=== PATIENT | male | born 1935 | race Caucasian/White ===

== ENCOUNTER 2018-02-24 10:41 | Observation (INO) | payer OTHER ==
[2018-02-24 11:19] LABS: Absolute Lymphocytes (CBC) 3.7 K/uL (0.7-4.9); Absolute Monocytes 2.6 K/uL (0.1-1.3); Absolute Neutrophil 22.5 K/uL (1.8-8.0); Basophils % 0.3 % (0-1.3); Eosinophils % 34.7 % (0-4.4); Hematocrit 48.1 % (39.6-49.0); Lymphocytes % 8.3 % (15.3-44.8); MCH 29.2 pg (27.0-35.0); MCV 88.5 fL (80-100); MPV 8.9 fL (7.6-11.3); Monocytes % 5.8 % (3.3-12.3); RBC Red Blood Cell Count 5.43 M/uL (4.33-5.43)
[2018-02-24 11:37] LABS: Albumin 3.1 g/dL (3.4-5.0); Bilirubin Direct 0.1 mg/dL (0-0.2); Bilirubin Total 0.4 mg/dL (0.2-1.0); Potassium 4.4 mmol/L (3.5-5.1); Protein, Total 6.3 g/dL (6.4-8.2)
[2018-02-24] MEDS ORDERED: NA CHLORIDE 0.9% 1,000 ML ONE (11:52)
--- NOTE | 2018-02-24 12:57 | RAD REPORT ---
EXAM DESCRIPTION: CT - Abdomen Pelvis Wo Contrast - 02/24/2018 12:47 pm CLINICAL HISTORY: Abdominal pain. diarrhea;Abd pain COMPARISON: No comparisons TECHNIQUE: CT imaging of the abdomen and pelvis was performed without contrast. Solid organ and vasc ular assessment is limited due to lack of IV contrast. All CT scans are performed using dose optimization technique as appropriate and may include automated exposure control or mA/KV adjustment according to patient size. FINDINGS: Subpleural nodule in the right lung base is present measuring 4 mm. This most likely repre sents an intrapulmonary lymph node. A couple of additional tiny areas of nodularity air seen in the r ight lung base.Small hiatal hernia is present. The liver, spleen, pancreas, right adrenal gland and kidneys are within normal limits for a limited n on-contrast examination.12 mm low-density nodule left adrenal gland is likely an adenoma. No bowel obstruction, free air, free fluid or abscess. Very prominent sigmoid diverticulosis coli pat tern is present without evidence of diverticulitis. The appendix is normal. The osseous structures are within normal limits.Small fat containing umbilical hernias. IMPRESSION: Prominent sigmoid diverticulosis coli without diverticulitis. A limited non-contrast examination was performed as detailed.
--- NOTE | 2018-02-24 13:13 | ER ---
Nurse's Notes [facility] Name: Natanael Pathak Age: 82 yrs Sex: Male : 1935 Arrival Date: 02/24/2018 Time: 10:46 Bed 6 Private MD: Diagnosis: Dehydration;Leukocytosis;Acute kidney failure Presentation: 02/24 10:47 Presenting complaint: EMS states: He went to the [facility] for N/V/D since Wednesday, the [facility] jl7 called d/t systolic BP of 60s, he's been 110 systolic for us since arrival. Transition of care: patient was received from another setting of care (ambulatory primary care physician practice), [place]. Onset of symptoms was February 19, 2018. Risk Assessment: Do you want to hurt yourself or someone else? Patient reports no desire to harm self or others. Initial Sepsis Screen: Does the patient meet any 2 criteria? No. Patient's initial sepsis screen is negative. Does the patient have a suspected source of infection? No. Patient's initial sepsis screen is negative. Care prior to arrival: None. 10:47 Method Of Arrival: EMS: [facility] jl7 10:47 Acuity: MONICA 3 jl7 Triage Assessment: 10:53 General: Appears in no apparent distress. uncomfortable, Behavior is calm, cooperative, jl7 appropriate for age. Pain: Denies pain. EENT: No signs and/or symptoms were reported regarding the EENT system. Neuro: Level of Consciousness is awake, alert, obeys commands, Oriented to person, place, time. Cardiovascular: Patient's skin is warm and dry. Respiratory: Airway is patent Respiratory effort is even, unlabored, Respiratory pattern is regular, symmetrical. GI: Reports diarrhea, nausea, vomiting, since 02/19/18. : No signs and/or symptoms were reported regarding the genitourinary system. Derm: Skin is pink, warm \T\ dry. Musculoskeletal: No signs and/or symptoms reported regarding the musculoskeletal system. Historical: - Allergies: 10:53 No Known Allergies; jl7 - PMHx: 10:53 Hypertension; Hyperlipidemia; leukocytosis; neuropathy; Diabetes - IDDM; jl7 - PSHx: 10:53 Tonsillectomy; jl7 - Immunization history:: Adult Immunizations up to date. - Social history:: Smoking status: Patient/guardian denies using tobacco. - Ebola Screening: : No symptoms or risks identified at this time. - Family history:: not pertinent. - Hospitalizations: : No recent hospitalization is reported. Screenin:55 Abuse screen: Denies threats or abuse. Denies injuries from another. Nutritional jl7 screening: No deficits noted. Tuberculosis screening: No symptoms or risk factors identified. Fall Risk IV access (20 points). Assessment: 10:57 General: See triage assessment. jl7 12:00 Reassessment: No changes from previously documented assessment. Patient and/or family jl7 updated on plan of care and expected duration. Pain level reassessed. Patient is alert, oriented x 3, equal unlabored respirations, skin warm/dry/pink. 13:09 Reassessment: Dr. Painter at bedside discussing plan of care. jl7 14:00 Reassessment: No changes from previously documented assessment. Patient and/or family jl7 updated on plan of care and expected duration. Pain level reassessed. Patient is alert, oriented x 3, equal unlabored respirations, skin warm/dry/pink. 15:04 Reassessment: Patient appears in no apparent distress at this time. Patient and/or jl7 family updated on plan of care and expected duration. Pain level reassessed. Patient is alert, oriented x 3, equal unlabored respirations, skin warm/dry/pink. Vital Signs: 10:53 BP 166 / 69; Pulse 95; Resp 16 S; Temp 97.7(O); Pulse Ox 97% on R/A; Weight 94.35 kg jl7 (R); Height 6 ft. 2 in. (187.96 cm) (R); Pain 0/10; 11:42 BP 111 / 94; Pulse 95; Resp 17; Pulse Ox 99% on R/A; jb1 13:09 BP 110 / 61; Pulse 95; Resp 17 S; Pulse Ox 98% on R/A; jl7 14:30 BP 101 / 58; Pulse 89; Resp 16 S; Pulse Ox 98% on R/A; jl7 15:04 BP 101 / 63; Pulse 89; Resp 18 S; Pulse Ox 97% on R/A; jl7 10:53 Body Mass Index 26.71 (94.35 kg, 187.96 cm) 7 ED Course: 10:46 Patient arrived in ED. rn 10:46 Dakota Painter MD is Attending Physician. rn 10:50 First set of blood cultures drawn by id. jb1 10:51 Triage completed. jl7 10:53 Arm band placed on right wrist. jl7 10:55 Patient has correct armband on for positive identification. Placed in gown. Bed in low jl7 position. Call light in reach. Side rails up X 1. boat engines installer on. Pulse ox on. NIBP on. Warm blanket given. 10:56 Joelle Hunter RN is Primary Nurse. jl7 11:05 Second set of blood cultures drawn by me. jb1 11:12 Initial lab(s) drawn, by id, sent to lab. Inserted saline lock: 20 gauge in left jb1 antecubital area, using aseptic technique. Blood collected. 11:54 EKG done, by ct technician. reviewed by Dakota Painter MD. at1 12:46 CT completed. Patient tolerated procedure well. Patient moved to CT via wheelchair. Patient moved back from CT. 12:47 Abdomen In Process Unspecified. EDMS 13:12 Kyle Donald MD is Hospitalizing Provider. rn 15:38 No provider procedures requiring assistance completed. Patient admitted, IV remains in jl7 place. intact, No redness/swelling at site. Administered Medications: 11:53 Drug: NS 0.9% 500 ml Route: IV; Rate: bolus; Site: left antecubital; jl7 13:00 Follow up: IV Status: Completed infusion jl7 Outcome: 13:12 Decision to Hospitalize by Provider. rn 15:37 Admitted to Tele accompanied by tech, via wheelchair, room 204, with chart, Report jl7 called to RAMIREZ Watts 15:37 Condition: stable 15:37 Discharge instructions given to patient, Instructed on the need for admit, Demonstrated understanding of instructions. 15:38 Patient left the ED. jl7 Signatures: Dispatcher [employer] EDMS Yuri Michelle jb1 Anna Del Real Roman, MD MD rn Gonzales, Amanda, fitness floor attendant EKG Tat1 Joelle Hunter RN RN jl7 Corrections: (The following items were deleted from the chart) 10:47 10:46 Joelle Hunter RN is Primary Nurse. jl7 jl7
--- NOTE | 2018-02-24 13:13 | EDPHYS ---
Physician Documentation [facility] Name: Natanael Pathak Age: 82 yrs Sex: Male : 1935 Arrival Date: 02/24/2018 Time: 10:46 Bed 6 Private MD: ED Physician Dakota Painter HPI: 02/24 11:47 This 82 yrs old Male presents to ER via EMS with complaints of rn Nausea/Vomiting/Diarrhea. 11:47 The patient presents to the emergency department with nausea, vomiting, diarrhea. rn Onset: The symptoms/episode began/occurred 2 day(s) ago. Possible causes: unknown. The symptoms are aggravated by nothing. The symptoms are alleviated by nothing. Severity of symptoms: At their worst the symptoms were moderate in the emergency department the symptoms are unchanged. The patient has not experienced similar symptoms in the past. Reports nausea/vomiting/diarrhea for 2 days, + mild abd cramping, + lightheaded and generalized weakness, seen at [facility] today, noted to be hypotensive, with BP in 60s, given 20cc of fluid PO challenge and called 911. . Historical: - Allergies: 10:53 No Known Allergies; jl7 - PMHx: 10:53 Hypertension; Hyperlipidemia; leukocytosis; neuropathy; Diabetes - IDDM; jl7 - PSHx: 10:53 Tonsillectomy; jl7 - Immunization history:: Adult Immunizations up to date. - Social history:: Smoking status: Patient/guardian denies using tobacco. - Ebola Screening: : No symptoms or risks identified at this time. - Family history:: not pertinent. - Hospitalizations: : No recent hospitalization is reported. ROS: 11:47 Constitutional: + fever and chills Eyes: Negative for injury, pain, redness, and rn clinical quality, Neck: Negative for injury, pain, and swelling, Cardiovascular: Negative for chest pain, palpitations, and edema, Respiratory: Negative for shortness of breath, cough, wheezing, and pleuritic chest pain, Abdomen/GI: + nausea/vomiting/diarrhea/and pain MS/Extremity: Negative for injury and deformity, Skin: Negative for injury, rash, and discoloration, Neuro: Negative for headache, numbness, tingling, and seizure. Exam: 11:47 Constitutional: This is a well developed, well nourished patient who is awake, alert, rn and in no acute distress. Head/Face: Normocephalic, atraumatic. Eyes: Pupils equal round and reactive to light, extra-ocular motions intact. Lids and lashes normal. Conjunctiva and sclera are non-icteric and not injected. Cornea within normal limits. Periorbital areas with no swelling, redness, or edema. ENT: dry MM Cardiovascular: Regular rate and rhythm with a normal S1 and S2. No gallops, murmurs, or rubs. Normal PMI, no JVD. No pulse deficits. Respiratory: Lungs have equal breath sounds bilaterally, clear to auscultation and percussion. No rales, rhonchi or wheezes noted. No increased work of breathing, no retractions or nasal flaring. Abdomen/GI: soft, non-tender MS/ Extremity: Pulses equal, no cyanosis. Neurovascular intact. Full, normal range of motion. Equal circumference. Neuro: Awake and alert, GCS 15, oriented to person, place, time, and situation. Cranial nerves II-XII grossly intact. Motor strength 5/5 in all extremities. Sensory grossly intact. Vital Signs: 10:53 BP 166 / 69; Pulse 95; Resp 16 S; Temp 97.7(O); Pulse Ox 97% on R/A; Weight 94.35 kg jl7 (R); Height 6 ft. 2 in. (187.96 cm) (R); Pain 0/10; 11:42 BP 111 / 94; Pulse 95; Resp 17; Pulse Ox 99% on R/A; jb1 13:09 BP 110 / 61; Pulse 95; Resp 17 S; Pulse Ox 98% on R/A; jl7 14:30 BP 101 / 58; Pulse 89; Resp 16 S; Pulse Ox 98% on R/A; jl7 15:04 BP 101 / 63; Pulse 89; Resp 18 S; Pulse Ox 97% on R/A; jl7 10:53 Body Mass Index 26.71 (94.35 kg, 187.96 cm) jl7 MDM: 10:46 Patient medically screened. rn 13:11 Differential diagnosis: Nonspecific abd pain, gastritis, pancreatitis, viral rn gastroenteritis, gastroenteritis. Differential diagnosis: gastritis, cholecystitis. Data reviewed: vital signs, nurses notes. Counseling: I had a detailed discussion with the patient and/or guardian regarding: the historical points, exam findings, and any diagnostic results supporting the discharge/admit diagnosis, lab results, radiology results, the need for further work-up and treatment in the hospital. Admission orders: after a detailed discussion of the patient's condition and case, the admit orders are written by me. ED course: Pt will be admitted for acute renal failure, dehydration, viral gastroenteritis, and unclear etiology of leukocytosis. . 02/24 10:46 Order name: Basic Metabolic Panel; Complete Time: 11:43 rn 02/24 10:46 Order name: CBC with Diff rn 02/24 10:46 Order name: Creatinine for Radiology; Complete Time: 11:43 rn 02/24 10:46 Order name: Hepatic Function; Complete Time: 11:43 rn 02/24 10:46 Order name: Lipase; Complete Time: 11:43 rn 02/24 11:05 Order name: Blood Culture Adult (2) aa 02/24 10:46 Order name: IV Saline Lock; Complete Time: 11:12 rn 02/24 10:46 Order name: Labs collected and sent; Complete Time: 11:12 rn 02/24 11:05 Order name: Lactate; Complete Time: 11:43 aa5 02/24 11:22 Order name: Manual Differential EDDC 02/24 11:53 Order name: EKG; Complete Time: 11:53 jl7 02/24 12:30 Order name: Abdomen ; Complete Time: 13:06 EDDC 02/24 11:53 Order name: EKG - Nurse/Tech; Complete Time: 13:43 jl7 Administered Medications: 11:53 Drug: NS 0.9% 500 ml Route: IV; Rate: bolus; Site: left antecubital; jl7 13:00 Follow up: IV Status: Completed infusion jl7 Disposition: 02/24/18 13:12 Hospitalization ordered by Kyle Donald for Inpatient Admission. Preliminary diagnosis are Dehydration, Leukocytosis, Acute kidney failure. - Bed requested for Telemetry/MedSurg (Inpatient). - Status is Inpatient Admission. jl7 - Condition is Stable. - Problem is new. - Symptoms have improved. UTI on Admission? No Signatures: Dispatcher [employer] EDDC Dakota Painter MD MD rn Leal, Jahala, RN RN jl7 Tete Rae RN RN df Corrections: (The following items were deleted from the chart) 12:30 10:47 Abdomen Pelvis W Con+CT.RAD.BRZ ordered. EDMS EDMS 14:51 13:12 Hospitalization Ordered by Kyle Donald MD for Inpatient Admission. Preliminary df diagnosis is Dehydration; Leukocytosis; Acute kidney failure. Bed requested for Telemetry/MedSurg (Inpatient). Status is Inpatient Admission. Condition is Stable. Problem is new. Symptoms have improved. UTI on Admission? No. rn 15:38 14:51 02/24/2018 13:12 Hospitalization Ordered by Kyle Donald MD for Inpatient jl7 Admission. Preliminary diagnosis is Dehydration; Leukocytosis; Acute kidney failure. Bed requested for Telemetry/MedSurg (Inpatient). Status is Inpatient Admission. Condition is Stable. Problem is new. Symptoms have improved. UTI on Admission? No. df
[2018-02-24 13:27] LABS: Blood Morphology Comment NOT SEEN (NOT SEEN); Platelet Estimate ADEQ
[2018-02-24] MEDS ORDERED: ONDANSETRON 4 MG/2 ML VIAL IV PRN (13:34)
[2018-02-24] MEDS ORDERED: ACETAMINOPHEN 500 MG TAB PO PRN (13:34)
[2018-02-24] MEDS: NA CHLORIDE 0.9% 1,000 ML IV SCH (16:29)
[2018-02-24 20:11] VITALS: BMI 26.6
[2018-02-24] MEDS: ATORVASTATIN 20 MG TAB PO SCH (20:23)
[2018-02-24] MEDS: ENOXAPARIN 30 MG/0.3 ML SQ SCH (20:24)
[2018-02-24] MEDS ORDERED: HOME MED 1 EA UNK (Simvastatin [Simvastatin] 1 TAB) PO SCH (21:00)
--- NOTE | 2018-02-24 22:08 | EKG ---
Test Date: 2018-02-24 Test Time: 11:20:35 Stenocaptioner: RA MEASUREMENT RESULTS: Intervals: Rate: 96 NV: 168 QRSD: 68 QT: 364 QTc: 459 [place]: P: 15 NV: 168 QRS: 62 T: 47 INTERPRETIVE STATEMENTS: Sinus rhythm with sinus arrhythmia with occasional premature ventricular complexes Anterior infarct, age undetermined Abnormal ECG No previous ECG available for comparison Electronically Signed On 02-24-18 22:08:15 CDT by Rahul Castillo
[2018-02-25] MEDS: NA CHLORIDE 0.9% 1,000 ML IV SCH ×3 (00:49→20:40)
--- NOTE | 2018-02-25 04:18 | HP ---
Date of Admission: 02/24/2018 Code Status: Full. Primary Care Physician: At the [facility]. Chief Complaint: Abdominal pain, nausea, vomiting, diarrhea, dizziness. History Of Present Illness: The patient is an 82-year-old male with past medical history of diabetes , hypertension, hyperlipidemia, undifferentiated leukocytosis, neuropathy who was in his usual state of health until 5 days prior to admission when the patient had sudden onset of abdominal pain that wa s crampy, intermittent, moderate in severity. The patient states associated symptoms included diarrh ea, which was loose watery. The patient did use some Imodium and Pepto-Bismol. He denied any fevers or chills. The patient came to the [place] for further evaluation, was found to be very hypotensive, and was sent to the ER for further evaluation. The patient denies any unusual foods, travel outside the country. No blood in the stool. Upon arrival, the patient's blood pressure was initially in the 80 s systolic. He was given 0.5 L bolus and improved his blood pressure to 1 teens. Workup revealed a white count of 44,000. The patient is aware of the elevated white blood cell count. There are no pr evious visits to compare. The patient denies any bone marrow biopsy or further workup to elucidate t he cause of his leukocytosis. His creatinine, however, was elevated at 2.7, baseline is unknown. Th e patient was then referred for admission. When seen in the ER, he was awake, alert, oriented x3. S ome mild distress. Past Medical History: Hypertension; hyperlipidemia; neuropathy; diabetes type 2, insulin requiring. Surgical History: Tonsillectomy at the age of 4. Allergies: NO KNOWN DRUG ALLERGIES. Medications: List reviewed. Social History: The patient denies any tobacco use. Rare alcohol use. No illicit drug use. The pa beto is independent and works out at the gym Wednesday through Wednesday, goes for walks on the weekends, independent in his activities of daily living. Family History: His grandfather had asthma and leaky heart valve. Review of Systems: An 11-point system reviewed, negative except as per HPI. Physical Examination: Vital Signs: Temperature 97.7, heart rate 95, blood pressure 110/61, respirations 16, O2 97% on room air. General: Awake, alert, oriented x3. Some mild distress. Elderly male, somewhat ill-appearing. HEENT: Normocephalic, atraumatic. PERRLA. EOMI. Dry mucous membranes. Oropharynx is clear. Conj unctivae anicteric. Neck: Supple. No JVD. Trachea midline. CV: S1, S2. Regular rate and rhythm. Peripheral pulses present. No murmurs. Respiratory: Moving air well bilaterally. No wheezing or stridor. No use of accessory muscles. Gastrointestinal: Abdomen is soft. Mild tenderness to palpation. No rebound or guarding. Bowel so unds are positive. Extremities: No clubbing, cyanosis, or edema. No calf tenderness. Neuro: Cranial nerves 2-12 intact grossly. No focal neurological deficit. Speech is normal. Stren gth is 5/5 in bilateral upper and lower extremities. Sensation decreased to light touch. Skin: No rashes. Normal skin turgor. Psych: Mood is okay. Affect is full. Insight and judgment are good. Laboratory Data: WBC 44.2, H and H 15.9, 48.1, platelets 339, neutrophils 50%, lymphocytes 8.3%, eos inophils 34%. Sodium 140, potassium 4.4, chloride 111, CO2 17, BUN 35, creatinine 2.7, glucose 212, lactate 1.8, calcium 7.2, AST 8, ALT 18, albumin 3.1, lipase 80, total bilirubin 0.4. CT scan of the abdomen and pelvis without contrast shows prominent sigmoid diverticulosis coli without diverticulit is, 12-mm low-density nodule, left adrenal gland, likely adenoma. Subpleural nodule in the right kari g base present measuring 4 mm, likely intrapulmonary lymph node. Assessment And Plan: An 82-year-old male with: 1.Gastroenteritis, likely viral versus bacterial. CT scan did not show any colitis. We will contin ue with supportive treatment, IV fluids, rehydration, and advance diet as tolerated. We will obtain stool sample, fecal leukocytes, and rule out Clostridium difficile. 2.Leukocytosis with eosinophilia, unclear etiology. We will obtain peripheral blood smear to rule o ut leukemia. The patient states that this was present previously, however, has not been worked up. No bone marrow biopsy done in the past. 3.Acute kidney injury versus [id number]-tn-[id number] kidney injury. The patient does not report any chroni c kidney disease, however, does have longstanding diabetes and hypertension. We will continue to mon itor creatinine. Avoid NSAIDs and nephrotoxins. Continue with IV fluid hydration, likely prerenal a zotemia from dehydration. 4.Hypotension. The patient resuscitated with IV fluids and blood pressure is improved. We will con tinue to monitor. Hold blood pressure medications at this time. 5.Mixed hyperlipidemia. The patient will resume home medications as appropriate. 6.Diabetes mellitus type 2, insulin requiring with hyperglycemia. We will start on sliding scale in sulin and resume home dose. Continue Accu-Cheks. 7.Gastrointestinal and deep venous thrombosis prophylaxis addressed with PPI and Lovenox. Plan: Admit the patient to Med-Surg, place as observation. We will follow up on peripheral blood sm ear and likely be discharging the patient home once the patient has clinical improvement in his kidne y function and resolution of his abdominal symptoms. ANA Voice ID: [id number]
[2018-02-25] MEDS: INSULIN GLARGINE 100 UNITS/ML SQ SCH (05:02)
[2018-02-25 06:21] LABS: Albumin 2.6 g/dL (3.4-5.0); Bilirubin Total 0.3 mg/dL (0.2-1.0); Potassium 4.1 mmol/L (3.5-5.1); Protein, Total 5.1 g/dL (6.4-8.2)
[2018-02-25 06:28] LABS: Absolute Lymphocytes (CBC) 4.9 K/uL (0.7-4.9); Absolute Monocytes 1.7 K/uL (0.1-1.3); Absolute Neutrophil 14.5 K/uL (1.8-8.0); Basophils % 0.4 % (0-1.3); Eosinophils % 42.1 % (0-4.4); Hematocrit 39.1 % (39.6-49.0); Lymphocytes % 13.4 % (15.3-44.8); MCH 29.8 pg (27.0-35.0); MCV 86.4 fL (80-100); MPV 9.2 fL (7.6-11.3); Monocytes % 4.7 % (3.3-12.3); RBC Red Blood Cell Count 4.52 M/uL (4.33-5.43)
[2018-02-25] MEDS ORDERED: GLUCAGON 1 MG/VIAL IM PRN (07:30)
[2018-02-25] MEDS: INSULIN -REGULAR HUMAN 50 UNIT/0.5 ML ML SQ SCH ×4 (07:30→20:37)
[2018-02-25] MEDS ORDERED: D50W 25 GM/50 ML SYRINGE IV PRN (07:30)
[2018-02-25 08:30] VITALS: O2SAT 98
[2018-02-25] MEDS: ENOXAPARIN 30 MG/0.3 ML SQ SCH (08:34)
[2018-02-25] MEDS: ASPIRIN 81 MG CHEWABLE TABLET PO SCH (08:34)
[2018-02-25] MEDS ORDERED: CALCIUM GLUC 10% INJ 4.65 MEQ in NA CHLORIDE 0.9% 100 ML IV ONE ×2 (09:13→18:00)
[2018-02-25] MEDS: VANCOMYCIN ORAL SOLN 250 MG/5 ML OSYR PO SCH ×3 (12:03→23:09)
--- NOTE | 2018-02-25 16:27 | P.CNS ---
Date of Consult: 02/25/18 Reason for Consult: abnormal RFT and abnormal labs Allergies No Known Allergies Allergy (Verified 02/24/18 16:30) Home Medications: Aspirin [Donell Chewable Aspirin] 1 tab PO DAILY 02/24/18 Glipizide [Glucotrol] 1 tab PO TID 02/24/18 Insulin Glargine,Hum.rec.anlog [Lantus] 50 units SQ [id number] 02/24/18 Lisinopril [Zestril] 1 tab PO DAILY 02/24/18 Metoprolol Tartrate [Lopressor*] 1 tab PO DAILY 02/24/18 Potassium Oral Tab [Klor-Con 10 mEq Tab*] 1 tab PO DAILY 02/24/18 Simvastatin 1 tab PO BEDTIME 02/24/18 hydroCHLOROthiazide [Hydrochlorothiazide] 1 tab PO DAILY 02/24/18 - Past Medical/Surgical History Diabetic: Yes -: Hypertension -: hyperlipidemia -: DM -: Chronic Leukocytosis -: Neuropathy - Social History Alcohol use: Yes CD- Drugs: No Caffeine use: Yes Place of Residence: Home Physical Examination Temp Pulse Resp BP Pulse Ox 97 F 80 20 125/57 L 99 02/25/18 12:00 02/25/18 12:00 02/25/18 12:00 02/25/18 12:00 02/25/18 12:00 General: Oriented x3 HEENT: Atraumatic Neck: Without JVD or thyroid abnormality Respiratory: Clear to auscultation bilaterally Cardiovascular: No edema - Problems (1) Gastroenteritis Onset Date: 02/25/18 Current Visit: Yes Status: Acute Conclusions/Impression: AN 82 Y/O man with PMHx of past medical history of diabetes, hypertension, CKD stage 3 Patient presented with diarrhea for 5 days duration with weakness Pt also noticed a dcreased UO No chest pain, palpitation, nausea or vomiting aware that he has abnormal RFT , but doesnt know the numbers BP 166/70 in ER Assessment and plan JAYJAY on CKD unknown baseline Cr eGFR now 24 has Dx of CKD III Abd CT: no hydro Cont IVF , no UO improved on IVF as per Pt UPC and serology W/U Leuckocytosis hypoca;lcemia will replace Diarrhea Improving now hypolabumeniemia DM BS control Leuckocytosis C.diff -ve Will send for flowcytometry
--- NOTE | 2018-02-25 17:03 | PN ---
Date of Progress Note: 02/25/2018 Subjective: The patient is seen and examined. Chart reviewed and case discussed with RN. The patient is still having multiple episodes of diarrhea, has had 4 episodes since last night. Abdominal pain still present. No nausea or vomiting. Able to tolerate his diet, however, not eating too much. Review of Systems: Negative except as above. Medications: List reviewed. Physical Examination: Vital Signs: Temperature 97, heart rate 82, blood pressure 104/57, respirations 20, O2 99% on room air. General: Awake, alert, oriented x3. Some mild distress. Elderly male. CV: S1 and S2. No murmurs. Peripheral pulses present. Respiratory: Moving air well bilaterally. No wheezing or stridor. No use of accessory muscles. Gastrointestinal: Abdomen is tender, however, no distention. Abdomen is soft. Bowel sounds are somewhat hyperactive. Extremities: No clubbing, cyanosis, or edema. Neurologic: Nonfocal. Laboratory Data: Sodium 140, potassium 4.1, chloride 112, CO2 19, BUN 37, creatinine 2.6, glucose 104, lactate 0.8, calcium 6.1, albumin 2.6. WBC 36.7, H and H 13.5 and 39.1, platelets 272, neutrophils 39%. Blood cultures, no growth to date. Stool cultures pending. Assessment And Plan: An 82-year-old male with: 1. Gastroenteritis, likely viral versus bacterial. CT abdomen reviewed. No colitis was evident. We will continue IV fluids and advance his diet as tolerated. The patient is still having significant amount of loose stools and some abdominal pain. We will follow up with stool cultures. We will start on prophylactic treatment for C diff. 2. Leukocytosis with eosinophilia, unclear etiology. Peripheral blood smear has been ordered. We will consult Oncology. No signs of sepsis. Lactate is normal. 3. Acute kidney injury versus [id number] kidney injury. The patient has been a long-standing diabetic, hypertensive. He denies any history of chronic kidney disease. However, we will obtain previous records to verify his baseline. For now we will continue with IV fluid hydration. Kidney function did improve slightly, may be secondary to prerenal azotemia from dehydration. We will avoid NSAIDs and nephrotoxins. 4. Acute hypotension secondary to gastroenteritis, improved with IV fluid hydration. We will hold blood pressure medications at this time. 5. Mixed hyperlipidemia. Resume home medications. 6. Diabetes mellitus type 2, insulin requiring with hyperglycemia uncontrolled. We will continue on sliding scale insulin and adjust as needed. Continue Accu-Cheks. 7. Gastrointestinal and deep venous thrombosis prophylaxis with PPI and Lovenox. Plan: We will continue treatment. Follow up on peripheral blood smear and stool cultures. Likely discharge in the next 24-48 hours. We will obtain nephrology consultation. ANA Voice ID: [id number] Report ID: [id number]
[2018-02-25] MEDS: ATORVASTATIN 20 MG TAB PO SCH (20:36)
[2018-02-26] MEDS: VANCOMYCIN ORAL SOLN 250 MG/5 ML OSYR PO SCH ×2 (05:05→11:36)
[2018-02-26] MEDS: NA CHLORIDE 0.9% 1,000 ML IV SCH (05:07)
[2018-02-26] MEDS: INSULIN GLARGINE 100 UNITS/ML SQ SCH (05:59)
[2018-02-26] MEDS: INSULIN -REGULAR HUMAN 50 UNIT/0.5 ML ML SQ SCH ×2 (07:30→11:30)
[2018-02-26] MEDS: ASPIRIN 81 MG CHEWABLE TABLET PO SCH (08:53)
[2018-02-26] MEDS: ENOXAPARIN 30 MG/0.3 ML SQ SCH (08:53)
[2018-02-26 10:50] VITALS: BP 165/71; TEMP 98.2
--- NOTE | 2018-02-27 10:25 | DS ---
Date of Discharge: 02/26/2018 Consultants: Dr. Camara with Nephrology. Admitting Diagnoses: 1.Acute gastroenteritis. 2.Leukocytosis with eosinophilia and left shift. 3.Acute kidney injury versus acute on chronic kidney injury. 4.Hypotension. 5.Hyperlipidemia. 6.Diabetes mellitus type 2, insulin requiring with hyperglycemia. Discharge Diagnoses: 1.Acute gastroenteritis, likely viral versus bacterial. 2.Diverticulosis without diverticulitis. 3.Leukocytosis with left shift and eosinophilia. Peripheral blood smear does not show any blast roc ls. 4.Acute on chronic kidney injury, stage 3. Creatinine improved. 5.Acute hypotension due to dehydration and gastroenteritis improved. 6.Hyperlipidemia, stable. 7.Diabetes mellitus type 2, insulin requiring with hyperglycemia, uncontrolled. 8.Overweight, BMI 26.7. Hospital Course: The patient is an 82-year-old male who came in with abdominal pain, nausea, vomitin g, and diarrhea. The patient also is symptomatic due to dehydration and dizziness. The patient's bl ood pressure was initially in the 80s systolic. He was given normal saline bolus and blood pressure had improved. His white blood cell count was 44,000. However, patient states that he is aware that he had elevated white blood cell count in the past. Reviewing his records that he provided from the [facility], he has a diagnosis of leukocytosis in 2005. However, he states that he has never had a bone sandra ow biopsy done. Peripheral blood smear was done which showed left shift with Eosinophilia; however, did not show any blast cells there. 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 As the [facility] is [facility], he will need to follow up with Oncology after being referred throchiqui h sg. Did speak with Dr. Lane who is happy to see the patient in her office following referr al from the [facility]. The patient was also given contact information for our office. The patient understa nds that he needs a bone marrow biopsy to rule out leukemia and others myeloproliferative disorders. The patient's gastroenteritis improved. His diarrhea improved. He did not have any further nausea or vomiting. He was able to tolerate a diet. Concerning his elevated creatinine, it did improve sli ghtly. Reviewing his records, he was found to have chronic kidney disease stage 3 and is consistent with his creatinine at this time, likely has kidney disease from long-standing hypertension and uncon trolled diabetes. The patient has a molecular electrolyte abnormalities, which were corrected. He w as seen by building rental manager. Flow cytometry results and other immunology results are still pending to be followed up with Nephrology. The patient was then feeling better, able to tolerate his diet and amb ulating well, therefore was discharged home in stable condition. Activity: As tolerated. Medications: As per medication reconciliation list. Followup: Follow up with PCP at the [facility] in 2 to 3 days. Follow up with building rental manager, Dr. Jax winslow 2 weeks. Follow up with precision honer, Dr. Lane in 2 weeks. Return to ER for worsening condi tion. Diet: Renal. Activity: As tolerated. Medications: As per medication reconciliation list. Physical Examination: General: Awake, alert, oriented x3, elderly male, in no acute distress CV: S1, S2. Peripheral pulses present. Respiratory: Moving air well bilaterally. No wheezing. Gastrointestinal: Abdomen is soft, nontender, nondistended. Positive bowel sounds. Extremities: No clubbing, cyanosis, or edema. Neurologic: Nonfocal. SA/MODL Voice ID: [id number] Report ID: [id number]
[2018-03-01 03:27] LABS: HBsAG Nonreactive (Nonreactive)
[2018-03-01 22:45] LABS: Albumin, (SPE) 2.8 g/dL (3.8-4.8); Alpha-1-Globulins 0.4 g/dL (0.2-0.3); Alpha-2-Globulins 0.8 g/dL (0.5-0.9); Gamma Globulins 0.4 g/dL (0.8-1.7); INTERPRETATION REPORT
== END 2018-02-26 12:01 | disposition home or self-care (01) ==
LOC: ER 10:41 → ERHOLD 13:15 → INTOOBSV 13:15 → 2ND 15:33
PROVIDERS: ADMIT Family Medicine; ATTEND Family Medicine
DX: K52.9 Noninfective gastroenteritis and colitis, unspecified (principal); K57.90 Diverticulosis of intestine, part unspecified, without perforation or abscess without bleeding; D72.829 Elevated white blood cell count, unspecified; I12.9 Hypertensive chronic kidney disease with stage 1 through stage 4 chronic kidney disease, or unspecified chronic kidney disease; E11.22 Type 2 diabetes mellitus with diabetic chronic kidney disease; E11.65 Type 2 diabetes mellitus with hyperglycemia; N18.3 Chronic kidney disease, stage 3 (moderate); N17.9 Acute kidney failure, unspecified; D72.1 Eosinophilia; I95.9 Hypotension, unspecified; E86.0 Dehydration; E78.5 Hyperlipidemia, unspecified
CPT/HCPCS: 36415 ×2; 74176; 80048; 80053; 80076; 82962 ×10; 83605 ×2; 83690; 84165; 85025 ×2; 86021; 86038; 86160 ×2; 87040 ×3; 87045; 87046; 87340; 87493; 89055; 93005; 94760 ×5; 96360; 99285; G0378 ×2; J0610 ×2; J1650 ×3; J7030 ×5

== ENCOUNTER 2018-02-26 21:34 | Emergency (ER) | payer OTHER ==
[2018-02-26] MEDS ORDERED: DIPHENOX/ATROP SULF 1 TAB PO ONE (22:19)
[2018-02-26] MEDS ORDERED: NA CHLORIDE 0.9% 1,000 ML ONE (22:19)
[2018-02-26 23:10] LABS: Absolute Lymphocytes (CBC) 3.8 K/uL (0.7-4.9); Absolute Monocytes 1.7 K/uL (0.1-1.3); Absolute Neutrophil 13.7 K/uL (1.8-8.0); Basophils % 0.8 % (0-1.3); Eosinophils % 41.2 % (0-4.4); Hematocrit 39.8 % (39.6-49.0); Lymphocytes % 11.4 % (15.3-44.8); MCH 29.3 pg (27.0-35.0); Monocytes % 5.2 % (3.3-12.3); RBC Red Blood Cell Count 4.57 M/uL (4.33-5.43)
[2018-02-26 23:26] LABS: Potassium 3.8 mmol/L (3.5-5.1)
[2018-02-26 23:30] LABS: Blood Morphology Comment NOT SEEN (NOT SEEN); Platelet Estimate ADEQ
--- NOTE | 2018-02-26 23:46 | EDPHYS ---
Physician Documentation [facility] Name: Natanael Pathak Age: 82 yrs Sex: Male : 1935 Arrival Date: 02/26/2018 Time: 21:36 Bed 14 Private MD: ED Physician Prakash Juarez HPI: 02/26 22:09 This 82 yrs old Male presents to ER via Ambulatory with complaints of pkl Diarrhea. 22:09 The patient presents to the emergency department with diarrhea. Onset: The pkl symptoms/episode began/occurred today. Patient was discharged from this hospital earlier today after spending about days in the hospital for diarrhea and dehydration. Historical: - Allergies: 21:42 No Known Allergies; la1 - PMHx: 21:42 Diabetes - IDDM; Hyperlipidemia; Hypertension; LEUKOCYTOSIS; neuropathy; la1 - Immunization history:: Adult Immunizations up to date. - Social history:: Smoking status: Patient/guardian denies using tobacco. - Ebola Screening: : No symptoms or risks identified at this time. ROS: 22:09 Eyes: Negative for injury, pain, redness, and discharge, ENT: Negative for injury, pkl pain, and discharge, Neck: Negative for injury, pain, and swelling, Cardiovascular: Negative for chest pain, palpitations, and edema, Respiratory: Negative for shortness of breath, cough, wheezing, and pleuritic chest pain. 22:09 Abdomen/GI: Positive for diarrhea. 22:09 Back: Negative for acute changes. 22:09 : Negative for urinary symptoms. 22:09 MS/extremity: Negative for acute changes. 22:09 Skin: Negative for rash. 22:09 Neuro: Negative for altered mental status. Exam: 22:09 Head/Face: Normocephalic, atraumatic. Eyes: Pupils equal round and reactive to light, pkl extra-ocular motions intact. Lids and lashes normal. Conjunctiva and sclera are non-icteric and not injected. Cornea within normal limits. Periorbital areas with no swelling, redness, or edema. ENT: Nares patent. No nasal discharge, no septal abnormalities noted. Tympanic membranes are normal and external auditory canals are clear. Oropharynx with no redness, swelling, or masses, exudates, or evidence of obstruction, uvula midline. Mucous membranes moist. Neck: Trachea midline, no thyromegaly or masses palpated, and no cervical lymphadenopathy. Supple, full range of motion without nuchal rigidity, or vertebral point tenderness. No Meningismus. Chest/axilla: Normal chest wall appearance and motion. Nontender with no deformity. No lesions are appreciated. Cardiovascular: Regular rate and rhythm with a normal S1 and S2. No gallops, murmurs, or rubs. Normal PMI, no JVD. No pulse deficits. Respiratory: Lungs have equal breath sounds bilaterally, clear to auscultation and percussion. No rales, rhonchi or wheezes noted. No increased work of breathing, no retractions or nasal flaring. 22:09 Abdomen/GI: Bowel sounds: active, Palpation: abdomen is soft and non-tender, in all quadrants. 22:09 Back: Exam negative for acute changes. 22:09 : Exam negative for acute changes. 22:09 Musculoskeletal/extremity: Exam is negative for 22:09 Skin: Exam negative for rash. 22:09 Neuro: Orientation: is normal, Mentation: is normal, Cranial nerves: grossly normal, Motor: is normal. Vital Signs: 21:44 BP 127 / 65; Pulse 85; Resp 16; Temp 97.3(TE); Pulse Ox 98% on R/A; Weight 94.35 kg; la1 22:53 BP 138 / 61; Pulse 78; Resp 16; Pulse Ox 98% on R/A; mt 23:48 BP 136 / 66; Pulse 75; Resp 18; Pulse Ox 98% on R/A; jb4 MDM: 21:55 Patient medically screened. pkl 23:43 Data reviewed: vital signs, nurses notes, lab test result(s). pkl 23:46 ED course: Patient said he is feeling better. Diarrhea has stopped. Will follow up with pkl the specialists he has been instructed when he was discharged from the hospital earlier today. 02/26 22:08 Order name: CBC with Diff; Complete Time: 23:33 pkl 02/26 22:08 Order name: Chem 7; Complete Time: 23:33 pkl 02/26 23:30 Order name: Manual Differential; Complete Time: 23:33 EDMS Administered Medications: 22:22 Drug: LoMOTIL 2 tabs Route: PO; jb4 22:51 Drug: NS 0.9% 500 ml Route: IV; Rate: bolus; Site: left antecubital; jb4 23:19 Follow up: IV Status: Completed infusion jb4 23:20 Drug: NS 0.9% 1000 ml Route: IV; Rate: 100 ml/hr; Site: left antecubital; jb4 Disposition: 02/26/18 23:45 Discharged to Home. Impression: Diarrhea. Renal insufficiency. Leukocytosis. - Condition is Stable. - Prescriptions for Lomotil 2.5- 0.025 mg Oral Tablet - take 2 tablets by ORAL route once daily As needed; 14 tablet. - Medication Reconciliation Form, Thank You Letter, Antibiotic Education, Prescription Opioid Use form. - Follow up: Private Physician; When: 2 - 3 days; Reason: Re-evaluation by your physician. - Problem is new. - Symptoms have improved. Signatures: Dispatcher [employer] EDMS Prakash Juarez MD MD pkl Gagandeep Duque RN RN la1 Esteban Church RN RN jb4 Corrections: (The following items were deleted from the chart) 23:59 23:45 02/26/2018 23:45 Discharged to Home. Impression: Diarrhea. Renal insufficiency. jb4 Leukocytosis. Condition is Stable. Forms are Medication Reconciliation Form, Thank You Letter, Antibiotic Education, Prescription Opioid Use. Follow up: Private Physician; When: 2 - 3 days; Reason: Re-evaluation by your physician. Problem is new. Symptoms have improved. pkl
--- NOTE | 2018-02-26 23:46 | ER ---
Nurse's Notes [facility] Name: Natanael Pathak Age: 82 yrs Sex: Male : 1935 Arrival Date: 02/26/2018 Time: 21:36 Bed 14 Private MD: Diagnosis: Diarrhea. Renal insufficiency. Leukocytosis Presentation: 02/26 21:42 Presenting complaint: Patient states: I was discharged from the hospital today around la1 noon and I ate some food and then got severe diarrhea. When I was discharged I had it under control but now I am having a lot of diarrhea and nothing over the counter is working. Transition of care: patient was not received from another setting of care. Onset of symptoms was February 26, 2018. Risk Assessment: Do you want to hurt yourself or someone else? Patient reports no desire to harm self or others. Initial Sepsis Screen: Does the patient meet any 2 criteria? No. Patient's initial sepsis screen is negative. Does the patient have a suspected source of infection? No. Patient's initial sepsis screen is negative. Care prior to arrival: None. 21:42 Method Of Arrival: Ambulatory la1 21:42 Acuity: MONICA 3 la1 Historical: - Allergies: 21:42 No Known Allergies; la1 - PMHx: 21:42 Diabetes - IDDM; Hyperlipidemia; Hypertension; LEUKOCYTOSIS; neuropathy; la1 - Immunization history:: Adult Immunizations up to date. - Social history:: Smoking status: Patient/guardian denies using tobacco. - Ebola Screening: : No symptoms or risks identified at this time. Screenin:52 Abuse screen: Denies threats or abuse. Nutritional screening: No deficits noted. jb4 Tuberculosis screening: No symptoms or risk factors identified. Fall Risk None identified. Assessment: 21:52 General: Appears in no apparent distress. comfortable, Behavior is calm, cooperative, jb4 appropriate for age. Pain: Denies pain. Neuro: Level of Consciousness is awake, alert, obeys commands, Oriented to person, place, time, situation. Cardiovascular: Patient's skin is warm and dry. Respiratory: Airway is patent Respiratory effort is even, unlabored, Respiratory pattern is regular, symmetrical. GI: Abdomen is round non-distended, Reports diarrhea. : No signs and/or symptoms were reported regarding the genitourinary system. EENT: No signs and/or symptoms were reported regarding the EENT system. Derm: Skin is intact, Skin is pink, warm \T\ dry. Musculoskeletal: No signs and/or symptoms reported regarding the musculoskeletal system. 22:52 Reassessment: Patient appears in no apparent distress at this time. Patient and/or jb4 family updated on plan of care and expected duration. Pain level reassessed. Patient is alert, oriented x 3, equal unlabored respirations, skin warm/dry/pink. 23:48 Reassessment: Patient appears in no apparent distress at this time. Patient and/or jb4 family updated on plan of care and expected duration. Pain level reassessed. Patient is alert, oriented x 3, equal unlabored respirations, skin warm/dry/pink. Vital Signs: 21:44 BP 127 / 65; Pulse 85; Resp 16; Temp 97.3(TE); Pulse Ox 98% on R/A; Weight 94.35 kg; la1 22:53 BP 138 / 61; Pulse 78; Resp 16; Pulse Ox 98% on R/A; mt 23:48 BP 136 / 66; Pulse 75; Resp 18; Pulse Ox 98% on R/A; jb4 ED Course: 21:36 Patient arrived in ED. es 21:44 Triage completed. la1 21:44 Arm band placed on right wrist. la1 21:47 Esteban Church, RAMIREZ is Primary Nurse. jb4 21:52 Patient has correct armband on for positive identification. Bed in low position. Call jb4 light in reach. Side rails up X 1. Pulse ox on. NIBP on. 21:55 Prakash Juarez MD is Attending Physician. pkl 22:49 Inserted saline lock: 22 gauge in left antecubital area, using aseptic technique. Blood mt collected. 23:58 No provider procedures requiring assistance completed. IV discontinued, intact, jb4 bleeding controlled. Administered Medications: 22:22 Drug: LoMOTIL 2 tabs Route: PO; jb4 22:51 Drug: NS 0.9% 500 ml Route: IV; Rate: bolus; Site: left antecubital; jb4 23:19 Follow up: IV Status: Completed infusion jb4 23:20 Drug: NS 0.9% 1000 ml Route: IV; Rate: 100 ml/hr; Site: left antecubital; jb4 Outcome: 23:45 Discharge ordered by . pkl 23:58 Discharged to home ambulatory. jb4 23:58 Condition: stable 23:58 Discharge instructions given to patient, Instructed on discharge instructions, follow up and referral plans. medication usage, Demonstrated understanding of instructions, follow-up care, medications, Prescriptions given X 1. 23:59 Patient left the ED. jb4 Signatures: Prakash Juarez MD MD pkl Roseline Patel Lee RN RN la1 Esteban Church RN RN jb4 Juli Yates nj
[2018-02-27 00:46] VITALS: TEMP 97.3; O2SAT 98
[2018-02-27 00:48] VITALS: BP 136/66
== END 2018-02-26 23:59 | disposition home or self-care (01) ==
LOC: ER 21:34
DX: D72.829 Elevated white blood cell count, unspecified (principal); N28.9 Disorder of kidney and ureter, unspecified; I10 Essential (primary) hypertension
CPT/HCPCS: 36415; 80048; 85025; 99284; J7030